=== PATIENT | male | born 1950 | race Two or more races ===

== ENCOUNTER 2020-05-05 12:21 | Outpatient (CLI) | payer OTHER ==
[~2020-05-05 12:21] MED LIST: CRESTOR20 MG PO; TENORMIN0.5 MG/ML IV
== END 2020-05-05 12:35 | disposition home or self-care (01) ==
LOC: TOM 12:21
PROVIDERS: ATTEND Internal Medicine
DX: R10.84 Generalized abdominal pain (principal)

== ENCOUNTER 2020-05-22 09:20 | Outpatient (CLI) | payer OTHER ==
[~2020-05-22 09:20] MED LIST changes: -TENORMIN0.5 MG/ML IV; +TENORMIN25 MG PO
[2020-05-26] MEDS ORDERED: IRBESARTAN150 MG PO (15:56)
[2020-05-26] MEDS ORDERED: METFORMIN HCL500 M3 PO (15:56)
[2020-05-26] MEDS ORDERED: RESTORIL30 MG PO (15:56)
[2020-05-27] MEDS ORDERED: SIMVASTATIN5 MG PO (11:38)
== END 2020-05-22 09:24 | disposition home or self-care (01) ==
LOC: RAD 09:20
PROVIDERS: ATTEND Surgery
DX: R10.84 Generalized abdominal pain (principal); I10 Essential (primary) hypertension

== ENCOUNTER 2020-05-28 05:57 | Day surgery (SDC) | payer OTHER ==
[~2020-05-28 05:57] MED LIST changes: +IRBESARTAN150 MG PO; +METFORMIN HCL500 M3 PO; +RESTORIL30 MG PO; +SIMVASTATIN5 MG PO
[2020-05-28] MEDS ORDERED: ULTRAM50 MG PO (10:34)
[2020-05-28] MEDS ORDERED: NEURONTIN300 MG PO (10:34)
[2020-05-28] MEDS ORDERED: MIRALAX17 GM PO (10:34)
[2020-05-28] MEDS ORDERED: TYLENOL ARTHRI650 MG PO (10:34)
== END 2020-05-28 14:28 | disposition home or self-care (01) ==
LOC: CIR.AMB 05:57
PROVIDERS: ATTEND Surgery
DX: K40.90 Unilateral inguinal hernia, without obstruction or gangrene, not specified as recurrent (principal); D17.5 Benign lipomatous neoplasm of intra-abdominal organs

== ENCOUNTER 2020-09-03 08:36 | Outpatient (CLI) | payer OTHER ==
[~2020-09-03 08:36] MED LIST changes: +MIRALAX17 GM PO; +NEURONTIN300 MG PO; +TYLENOL ARTHRI650 MG PO; +ULTRAM50 MG PO
== END 2020-09-03 08:42 | disposition home or self-care (01) ==
LOC: RAD 08:36
PROVIDERS: ATTEND Internal Medicine
DX: M25.762 Osteophyte, left knee (principal); M25.552 Pain in left hip; M25.562 Pain in left knee

== ENCOUNTER 2021-10-15 07:26 | Outpatient (CLI) | payer OTHER | END 2021-10-15 07:39 | disposition home or self-care (01) | LOC: SONOGRAMA 07:26 | PROVIDERS: ATTEND Internal Medicine | DX: K76.0 Fatty (change of) liver, not elsewhere classified (principal); R10.84 Generalized abdominal pain; R16.0 Hepatomegaly, not elsewhere classified ==

== ENCOUNTER 2022-02-07 07:47 | Outpatient (CLI) | payer OTHER | END 2022-02-07 07:52 | disposition home or self-care (01) | LOC: RAD 07:47 | PROVIDERS: ATTEND Orthopaedic Surgery | DX: M25.551 Pain in right hip (principal); M25.552 Pain in left hip ==

== ENCOUNTER 2022-03-31 07:13 | Outpatient (CLI) | payer OTHER | END 2022-03-31 07:27 | disposition home or self-care (01) | LOC: SONOGRAMA 07:13 | PROVIDERS: ATTEND Internal Medicine | DX: G47.00 Insomnia, unspecified (principal); I70.0 Atherosclerosis of aorta; E11.69 Type 2 diabetes mellitus with other specified complication; E78.00 Pure hypercholesterolemia, unspecified; I11.9 Hypertensive heart disease without heart failure; D69.6 Thrombocytopenia, unspecified; N18.31 Chronic kidney disease, stage 3a ==

== ENCOUNTER 2022-12-20 10:12 | Outpatient (CLI) | payer OTHER | END 2022-12-20 10:14 | disposition home or self-care (01) | LOC: RAD 10:12 | PROVIDERS: ATTEND Internal Medicine | DX: M54.6 Pain in thoracic spine (principal); M54.17 Radiculopathy, lumbosacral region; S22.49XA Multiple fractures of ribs, unspecified side, initial encounter for closed fracture ==

== ENCOUNTER 2023-12-26 10:59 | Outpatient (CLI) | payer OTHER | END 2023-12-26 11:07 | disposition home or self-care (01) | LOC: RAD 10:59 | PROVIDERS: ATTEND Internal Medicine | DX: M54.17 Radiculopathy, lumbosacral region (principal) ==

== ENCOUNTER 2024-01-01 08:53 | Outpatient (CLI) | payer OTHER | END 2024-01-01 08:55 | disposition home or self-care (01) | LOC: SONOGRAMA 08:53 | PROVIDERS: ATTEND Urology | DX: N40.1 Benign prostatic hyperplasia with lower urinary tract symptoms (principal) ==

== ENCOUNTER 2024-01-05 13:39 | Outpatient (CLI) | payer OTHER | END 2024-01-05 13:55 | disposition home or self-care (01) | LOC: MRI 13:39 | PROVIDERS: ATTEND Internal Medicine | DX: M54.17 Radiculopathy, lumbosacral region (principal) | CPT/HCPCS: 72148 ==

== ENCOUNTER 2024-10-21 10:37 | Outpatient (CLI) | payer OTHER | END 2024-10-21 10:40 | disposition home or self-care (01) | LOC: RAD 10:37 | PROVIDERS: ATTEND Internal Medicine | DX: M54.2 Cervicalgia (principal) ==

== ENCOUNTER 2025-01-10 09:56 | Outpatient (CLI) | payer OTHER | END 2025-01-10 10:04 | disposition home or self-care (01) | LOC: TOM 09:56 | PROVIDERS: ATTEND Internal Medicine | DX: M15.0 Primary generalized (osteo)arthritis (principal) ==

== ENCOUNTER 2025-04-10 14:07 | Outpatient (CLI) | payer OTHER | END 2025-04-10 14:10 | disposition home or self-care (01) | LOC: RAD 14:07 | PROVIDERS: ATTEND Orthopaedic Surgery | DX: M16.0 Bilateral primary osteoarthritis of hip (principal) ==

== ENCOUNTER 2025-08-25 08:39 | Outpatient (CLI) | payer OTHER | END 2025-08-25 08:41 | disposition home or self-care (01) | LOC: SONOGRAMA 08:39 | PROVIDERS: ATTEND Specialist/Technologist, Other Nephrology | DX: R10.9 Unspecified abdominal pain (principal); N18.30 Chronic kidney disease, stage 3 unspecified; R31.9 Hematuria, unspecified ==